=== PATIENT | male | born 1940 | race Caucasian/White ===

== ENCOUNTER 2016-10-29 12:18 | Emergency (ER) | payer OTHER, MEDICARE ==
[2016-10-29 12:26] VITALS: RESP 16; O2SAT 95
--- NOTE | 2016-10-29 13:06 | EDPHY ---
H & P Stated Complaint: L knee injury Time Seen by Provider: 10/29/16 12:42 HPI/ROS: CHIEF COMPLAINT: Left knee pain HISTORY OF PRESENT ILLNESS: 76-year-old male presents emergency department complaining of left knee pain that started 2 days ago. Patient reports it is achy in nature, it started in his lateral knee and now he feels more of it medially. Patient reports last week he got a new truck and he has to crawl up higher to get into it, that is his only increase in activity. He denies fevers or chills, no redness. Patient has a history of gout, reports this does not feel similar, no history of gout in his knees. Patient reports 1 prior history of left knee effusion with fluid was drained several years ago. He reports pain is worse with walking, no pain if he is not moving. No fevers or chills, no numbness or tingling. Patient denies calf pain, no chest pain or shortness of breath. REVIEW OF SYSTEMS: A comprehensive 10 point review of systems is otherwise negative aside from elements mentioned in the history of present illness. Source: Patient Exam Limitations: No limitations - Personal History Current Tetanus/Diphtheria Vaccine: Unsure Current Tetanus Diphtheria and Acellular Pertussis (TDAP): Unsure Tetanus Vaccine Date: 2010 - Medical/Surgical History Hx Asthma: No Hx Chronic Respiratory Disease: Yes Hx Diabetes: Yes Hx Cardiac Disease: Yes Hx Renal Disease: No Hx Cirrhosis: No Hx Alcoholism: No Hx HIV/AIDS: No Hx Splenectomy or Spleen Trauma: No Other PMH: pmh:PACER, DM T1, CHF, [place]. psh: - Social History Smoking Status: Never smoked - Physical Exam Exam: GEN: Awake, alert, oriented, no acute distress RESP: nl resp effort MSK: Left knee with full range of motion, mild effusion, mild medial joint line tenderness to palpation, no lateral joint line tenderness, negative valgus stress, negative varus stress. No calf tenderness to palpation or swelling. SKIN:[place], warm, dry, no rash Constitutional: Initial Vital Signs Temperature (C) 36.7 C 10/29/16 12:24 Heart Rate 84 10/29/16 12:24 Respiratory Rate 16 10/29/16 12:24 Blood Pressure 104/69 10/29/16 12:24 O2 Sat (%) 95 10/29/16 12:24 O2 Delivery Mode Room Air Allergies/Adverse Reactions: No Known Allergies Allergy (Unverified 04/26/13 15:05) Home Medications: Medication Instructions Recorded Insulin Lispro [Humalog] 6 unit SQ ACHS PRN 04/26/13 Atorvastatin Calcium [Lipitor 20 20 mg PO DAILY #30 tab 10/05/15 mg (*)] Rivaroxaban [Xarelto 15mg (*)] 15 mg PO DAILY #30 tab 10/05/15 C/E/Zn/Cu/OM3/DHA/EPA/LUT/ZEAX 1 each PO BID 12/04/15 [Preservision Areds 2 Softgel] Carvedilol [Coreg (*)] 6.25 mg PO BIDMEAL 12/04/15 Cholecalciferol Vit D3 [Vitamin D3 5,000 units PO BID 12/04/15 (*)] Dulaglutide [Trulicity] 1.5 mg SQ WE 12/04/15 Febuxostat [ULORIC] 40 mg PO DAILY 12/04/15 Fluocinonide 1 mabel TP DAILY PRN 12/04/15 Herbals/Supplements -Info Only 1 ea PO DAILY 12/04/15 Insulin Glargine [Lantus 100 20 - 35 units SC DAILY 12/04/15 UNITS/ML (*)] Isosorbide Mononitrate [Imdur 30 30 mg PO DAILY 12/04/15 mg (*)] Furosemide [Lasix 20 MG (*)] 20 mg PO DAILY 12/27/15 Medical Decision Making - Diagnostics Imaging: Knee x-ray independently reviewed by me- Impression: Negative for acute abnormality. Advanced patellofemoral osteoarthritis. Atherosclerosis. Dictated By: Jovanny Castañeda MD ED Course/Re-evaluation: 76-year-old male presents emergency department with knee pain over the last 2 days. Patient has an x-ray that shows a moderate osteoarthritis. I think his pain is likely due to his new truck that is harder to get in out of and he is having arthritis pains. I do not think the patient has gout in this knee. He has no erythema, warmth or exquisite tenderness. Patient has been placed in Luis wrap, I have recommended ice, elevation, Tylenol and he has been given an orthopedist for follow-up. The patient is given strict return precautions for redness, fevers, increased pain, swelling, any other questions or concerns. Differential Diagnosis: Diagnosis considered but not limited to osteoarthritis, septic joint, gout, sprain - Data Points Medications Given: Discontinued Medications Acetaminophen (Tylenol) 650 mg PO EDNOW ONE Stop: 10/29/16 14:36 Last Admin: 10/29/16 15:00 Dose: 650 mg Departure - Departure Disposition: Home, Routine, Self-Care Clinical Impression: Left knee pain Qualifiers: Chronicity: acute Qualifier Code: (M25.562) Pain in left knee Condition: Good Instructions: Knee Pain (ED), Osteoarthritis (ED) Additional Instructions: Rest, ice, elevate, take 650 mg of Tylenol every 8 hours for pain. Follow up with orthopedist at 1st available appointment. Return to the emergency department for worsening symptoms, pain that is not controlled, new symptoms or concerns. Referrals: Antonio Aguiar MD [Medical Doctor] - As per Instructions (orthopedist almond paste mixer)
[2016-10-29] MEDS ORDERED: ACETAMINOPHEN 325 MG TAB PO ONE (14:35)
--- NOTE | 2016-10-29 14:37 | DX ---
Knee 4 or More Views CLNLRB L History: Left knee pain, without trauma. Comparison exam: None available. Findings: Marked patellofemoral degenerative joint disease, especially laterally, associated with lat eral patellar tilt. No fracture or joint effusion. Mild chondrocalcinosis. Extensive diabetic vascular calcifications are present. Impression: Negative for acute abnormality. Advanced patellofemoral osteoarthritis. Atherosclerosis.
[2016-10-29 15:45] VITALS: BP 110/65; PULSE 74; TEMP 97.9
== END 2016-10-29 15:44 | disposition home or self-care (01) ==
DX: M25.562 Pain in left knee (principal); E11.9 Type 2 diabetes mellitus without complications; I50.9 Heart failure, unspecified; Z79.4 Long term (current) use of insulin

== ENCOUNTER → 2017-02-23 | Outpatient (CLI) | payer OTHER, MEDICARE | LOC: BHLMT 14:00 | PROVIDERS: ATTEND Internal Medicine Cardiovascular Disease | DX: I50.9 Heart failure, unspecified (principal) | CPT/HCPCS: 93306-PO ==

== ENCOUNTER 2017-03-16 08:34 | Observation (INO) | payer OTHER, MEDICARE ==
[2017-03-16] MEDS ORDERED: DIAZEPAM 5 MG TAB PO ONE (08:40)
[2017-03-16] MEDS ORDERED: BACITRACIN IRRIGATION/NS 50,000 UNITS/1,000 ML BTL IRR ONE (08:40)
[2017-03-16] MEDS ORDERED: NS 1,000 ML IV ONE (08:40)
[2017-03-16] MEDS ORDERED: diphenhydrAMINE 25 MG CAP PO ONE (08:40)
[2017-03-16] MEDS ORDERED: ceFAZolin 2 GM/DEXTROSE 100 ML IV ONE (08:40)
--- NOTE | 2017-03-16 09:09 | CPEKG ---
Heart Rate: 85 RR Interval: 706 QRSD Interval: 144 QT Interval: 420 QTC Interval: 500 QRS [place]: 226 T Wave [place]: 68 EKG Severity - ABNORMAL ECG - EKG Impression: AFIB/FLUTTER AND VENTRICULAR-PACED RHYTHM Electronically Signed By: Antonio Wahl 16-Mar-2017 16:14:12
[2017-03-16 09:22] LABS: % IMMATURE GRANULYOCYTES 0.3 % (0.0-1.1); ABSOLUTE IMMATURE GRANULOCYTES 0.02 10^3/uL (0.00-0.10); ADD DIFF? NO; ADD MORPH? NO; ADD SCAN? NO; ATYPICAL LYMPHOCYTE FLAG 0 (0-99); FRAGMENT RBC FLAG 0 (0-99); HEMATOCRIT 43.9 % (40.0-51.0); HEMOGLOBIN 14.8 g/dL (13.7-17.5); LEFT SHIFT FLG 0 (0-99); LIPEMIA HEMOLYSIS FLAG 80 (0-99); MEAN CELL HEMOGLOBIN 31.2 pg (27.9-34.1); MEAN CELL HEMOGLOBIN CONCENTR. 33.7 g/dL (32.4-36.7); MEAN CELL VOLUME 92.4 fL (81.5-99.8); MEAN PLATELET VOLUME 10.1 fL (8.7-11.7); PLATELET CLUMPS FLAG 20 (0-99); PLATELET COUNT 157 10^3/uL (150-400); RED BLOOD CELL COUNT 4.75 10^6/uL (4.40-6.38); RED CELL DISTRIBUTION WIDTH 14.9 % (11.5-15.2)
[2017-03-16 09:43] LABS: INR 1.13 (0.83-1.16); PROTIME(PATIENT) 14.4 SEC (12.0-15.0)
[2017-03-16 09:44] LABS: ANION GAP 13 mEq/L (8-16); CALCIUM 10.2 mg/dL (8.5-10.4); CARBON DIOXIDE 23 mEq/l (22-31); CHLORIDE 101 mEq/L (97-110); CREATININE 2.3 mg/dL (0.7-1.3); GLOMERULAR FILTRATION RATE 28; GLUCOSE 51 mg/dL (70-100); POTASSIUM 4.5 mEq/L (3.5-5.2); SODIUM 137 mEq/L (134-144)
[2017-03-16] MEDS ORDERED: D50W 25 GM/50 ML VIAL ONE (10:15)
[2017-03-16] MEDS ORDERED: D50W 25 GM/50 ML VIAL IVP ONE ×2 (10:30)
[2017-03-16] MEDS ORDERED: LIDOCAINE 1% 300 MG/30 ML SDV ONE (11:40)
[2017-03-16] MEDS ORDERED: MIDAZOLAM 2 MG/2 ML VIAL ONE (11:40)
[2017-03-16] MEDS ORDERED: LIDO/EPI 1% **for epidural** 30 ML SDV ONE (11:40)
[2017-03-16] MEDS ORDERED: fentaNYL 100 MCG/2 ML INJ ONE (11:40)
[2017-03-16] MEDS ORDERED: BUPIVACAINE 0.5% 30 ML SDV ONE (11:41)
[2017-03-16] MEDS ORDERED: HYDROCODONE/APAP 5/325 TAB PO PRN (13:14)
[2017-03-16] MEDS ORDERED: OXYCODONE/APAP 5/325 TAB PO PRN (13:14)
[2017-03-16] MEDS ORDERED: FLUOCINONIDE TP PRN ×2 (13:16→15:07)
--- NOTE | 2017-03-16 13:51 | CPEKG ---
Heart Rate: 70 RR Interval: 857 QRSD Interval: 160 QT Interval: 436 QTC Interval: 471 QRS [place]: 171 T Wave [place]: -12 EKG Severity - ABNORMAL ECG - EKG Impression: AFIB/FLUTTER AND VENTRICULAR-PACED RHYTHM Electronically Signed By: Antonio Wahl 16-Mar-2017 16:14:01
[2017-03-16] MEDS: CARVEDILOL 3.125 MG TAB PO SCH (17:56)
[2017-03-16] MEDS ORDERED: ATORVASTATIN CALCIUM 20 MG TAB PO SCH (21:00)
--- NOTE | 2017-03-16 23:13 | CPIP ---
[f rep st] INVASIVE CARDIAC PROCEDURE DATE OF PROCEDURE: 03/16/2017 INDICATIONS: The patient is a 77-year-old male with a history of a severe ischemic cardiomyopathy, and ongoing [place] [employer] functional Class 3 congestive heart failure. He currently hull s a dual chamber biventricular pacemaker. He has chronic atrial fibrillation. He is referred for u pgrade of his current pacemaker to a biventricular ICD. PROCEDURE: Upgrade of a biventricular pacemaker to a biventricular internal cardioverter-defibrilla tor. TECHNIQUE: Following informed consent, the patient was brought to cardiac catheterization [facility] in a fasting state. He was administered prophylactic antibiotics immediately prior to the procedu re. The left chest was prepped and draped in usual sterile fashion. 2% lidocaine was infiltrated i n the skin overlying the existing pacemaker. Using a #10 blade, a 3 cm incision was made. Blunt di ssection was used to identify the pacemaker capsule, which was opened sharply and the device was del ivered from the field. At this point, all the leads were carefully dissected from the surrounding s car tissue. All bleeders were cauterized. Using a Cook needle, access was gained to the axillary v ein at the level of the 1st rib. A 0.035 J-wire was then placed and a 5-[place] dilator placed over this. A venogram was performed which identified a patent axillary subclavian system with a tortuous course and a small stricture. Therefore, we passed a J-wire easily into the superior vena cava. [facility] allowed us to place a 7-[place] safe sheath. Using the safe sheath, the right ventricular lead was brought to the field and placed low on the int erventricular septum and screwed into place and secured to the ICD pocket floor. This lead was test ed with excellent capture and sensing. All the other leads were additionally tested with excellent capture and sensing. The pocket was irrigated with antibiotic-containing solution. The new device was brought to the field and all leads affixed to the head according to design agent guidelines. Th e right atrial lead was connected to the device. The patient does have chronic atrial fibrillation, however, this will assist in sensing. The existing pace sense right ventricular lead was then capp ed. The device and the redundant portions of all leads were then placed in the pocket. The pocket was then closed in 3 layers with 2 layers of interrupted suture using 2-0 and 3-0 Vicryl, and finall y a running 3-0 Stratafix for the skin. Steri-Strips and a dry dressing were applied. The newly placed high-voltage right ventricular lead is a [employer], reference numbe r 7122Q, 58 cm lead, serial number [id number]. The newly implanted device is a [employer] device, model number [id number], serial number [id number]. The existing right atrial lead i s a [employer] 1882TC 52 cm lead, serial number [id number] implanted December 05, 2012. The cap ped right ventricular lead is [employer] 2088TC 58 cm lead, serial number [id number], implant ed December 05, 2012. The coronary sinus lead is a [employer] 1258T 75 cm lead, serial number [id number], implanted March 27, 2013. Sensed R waves in the right ventricle were 11.4 mV with lead impedance of 496 ohms. The capture was 0.4 V at 0.5 msec. The coronary sinus lead impedance 490 ohms with a threshold 0.3 V at 0.5 msec. Right atrial lead was not tested due to the presence of chronic atrial fibrillation. DFTs were not performed. COMPLICATIONS: None. DISPOSITION: Patient will be recovered in the CVC. He will be admitted to the hospital overnight, and discharged home from the hospital tomorrow. /[id number]/MODL
[2017-03-16 23:17] VITALS: RESP 16
[2017-03-17 05:11] LABS: % IMMATURE GRANULYOCYTES 0.2 % (0.0-1.1); ABSOLUTE IMMATURE GRANULOCYTES 0.01 10^3/uL (0.00-0.10); ADD DIFF? NO; ADD MORPH? NO; ADD SCAN? NO; ATYPICAL LYMPHOCYTE FLAG 0 (0-99); FRAGMENT RBC FLAG 0 (0-99); HEMATOCRIT 40.5 % (40.0-51.0); HEMOGLOBIN 13.7 g/dL (13.7-17.5); LEFT SHIFT FLG 0 (0-99); LIPEMIA HEMOLYSIS FLAG 90 (0-99); MEAN CELL HEMOGLOBIN 31.3 pg (27.9-34.1); MEAN CELL HEMOGLOBIN CONCENTR. 33.8 g/dL (32.4-36.7); MEAN CELL VOLUME 92.5 fL (81.5-99.8); MEAN PLATELET VOLUME 10.6 fL (8.7-11.7); PLATELET CLUMPS FLAG 0 (0-99); PLATELET COUNT 119 10^3/uL (150-400); RED BLOOD CELL COUNT 4.38 10^6/uL (4.40-6.38); RED CELL DISTRIBUTION WIDTH 14.9 % (11.5-15.2)
[2017-03-17 05:30] LABS: ANION GAP 11 mEq/L (8-16); CALCIUM 9.5 mg/dL (8.5-10.4); CARBON DIOXIDE 21 mEq/l (22-31); CHLORIDE 103 mEq/L (97-110); GLOMERULAR FILTRATION RATE 32; GLUCOSE 151 mg/dL (70-100); POTASSIUM 4.6 mEq/L (3.5-5.2); SODIUM 135 mEq/L (134-144)
[2017-03-17 08:27] VITALS: PULSE 70
--- NOTE | 2017-03-17 08:39 | CPEKG ---
Heart Rate: 70 RR Interval: 857 P-R Interval: 182 QRSD Interval: 158 QT Interval: 412 QTC Interval: 445 P [place]: 0 QRS [place]: 178 T Wave [place]: 62 EKG Severity - ABNORMAL ECG - EKG Impression: VENTRICULAR-PACED RHYTHM Electronically Signed By: Mike Woods 18-Mar-2017 09:45:20
[2017-03-17] MEDS ORDERED: FUROSEMIDE 20 MG TAB PO ONE (08:57)
[2017-03-17] MEDS ORDERED: ISOSORBIDE MONONITRATE 30 MG TAB.SR PO SCH (09:00)
[2017-03-17] MEDS ORDERED: INSULIN GLARGINE 100 UNITS/ML SYRINGE SC SCH (09:00)
[2017-03-17] MEDS ORDERED: FUROSEMIDE 20 MG TAB PO SCH (09:00)
[2017-03-17] MEDS ORDERED: CHOLECALCIFEROL VIT D3 1,000 UNITS TAB PO SCH (09:00)
[2017-03-17] MEDS: CARVEDILOL 3.125 MG TAB PO SCH (09:19)
[2017-03-17 11:33] VITALS: BP 90/58; TEMP 97.2; O2SAT 94
--- NOTE | 2017-03-17 20:02 | GDS ---
[f rep st] DISCHARGE SUMMARY ADMISSION DIAGNOSES: 1. Coronary artery disease. 2. Chronic ischemic cardiomyopathy, with ejection fraction of 30%, valvular heart disease, with kno wn [id number] mitral regurgitation and tricuspid regurgitation, renal insufficiency, with no rmal creatinine at 2.2. 3. Insulin-dependent diabetes. 4. Remote history of biventricular pacemaker. 5. Persistent atrial fibrillation. DISCHARGE DIAGNOSES: 1. Coronary artery disease. 2. Chronic ischemic cardiomyopathy, with ejection fraction less than 30%. 3. Status post upgrade biventricular pacemaker to automatic implantable cardioverter/defibrillator, with new right ventricular lead implantation. 4. Chronic renal insufficiency. 5. Insulin-dependent diabetic. 6. Persistent atrial fibrillation. PROCEDURES DONE DURING HOSPITALIZATION: 1. Electrocardiogram. 2. Biventricular pacemaker upgrade to biventricular AICD, with new RV lead implantation, both [employer] ude device and lead. 3. Chest x-ray. BRIEF HISTORY: The patient is a 77-year-old male with known history of CAD, chronic systolic heart failure, chronic ischemic cardiomyopathy, with EF less than 30%. He has been tried on maximum medic al therapy, with no improvement in ejection fraction, and due to his risk for sudden cardiac , he meets the criteria for upgrade to AICD. HOSPITAL COURSE: Patient was admitted through CVC, prepped for procedure, and taken to the cardiac catheterization lab. There, Dr. Wahl successfully removed his old pacemaker generator, implanted a new RV lead with coil for defibrillation, capped his old RV lead, and installed a new [employer] bive ntricular AICD generator. No complications. The patient was taken back to the CVC, and ultimately to the PCU for overnight observation. The patient had no problems, reporting mild shortness of ion th through last night, but no chest pain or pressure. Electrocardiogram shows that he has been in a trial fibrillation, with ventricular-paced beats. He has been up and walking the unit without any d ifficulties. His vital signs remained stable throughout the evening. No malignant arrhythmia or pa uses noted. PHYSICAL EXAMINATION: Done today. GENERAL APPEARANCE: Medium-built, mildly obese, male. He is alert and oriented to person, place, time, and situation, appears to be under no acute distr ess. VITAL SIGNS: Current vital signs are blood pressure of 98/63, heart rate is 70, atrial fibril lation with ventricular-paced beats, respirations 16, saturating 94% on room air, temperature of 36. 2 degrees Celsius. HEENT: Head is normocephalic. Lips and tongue are pink and moist, with no sign s of cyanosis. Conjunctivae pink. NECK: Trachea is midline, +2 carotid pulses, no auscultated bru its. RESPIRATORY: Lungs clear to auscultation. No rhonchi, rales or wheezes. No accessory muscle use. No intercostal muscle retraction. CARDIAC: Regular rate, regular rhythm. S1, S2. A 2/6 sy stolic murmur noted along the left sternal border. ABDOMEN: Soft, nontender. Bowel sounds x4 quad rants. No organomegaly. No palpable masses. SKIN: [place], warm, dry. No cyanosis, no clubbing. T race peripheral edema bilateral lower extremities. VASCULAR: +2 carotids bilateral, +2 radials [place] ateral, +2 dorsal pedal and posterior tibial pulses bilateral. Incision site, pacemaker, and AICD i ncision site, left anterior chest just distal to the clavicle, incision intact with Steri-Strips. N o redness, swelling, drainage, ecchymosis or hematoma. No signs of infection. Dressing change done at this time. LABORATORY STUDIES: Drawn today show WBC of 5.43, hemoglobin 13.7, hematocrit of 40.5, platelet cou nt 119. INR on admission was 1.13. Sodium 135, potassium of 4.6, chloride 103, CO2 21, BUN 54, cre atinine 2.0, glucose 151, calcium 9.5. IMAGING: Biventricular AICD, with RV lead implantation, as mentioned above. A.m. electrocardiogram shows atrial fibrillation, with ventricular-paced beats. [employer] Franco rep interrogating device this morning showing functioning within normal limits. Chest x-ray done this morning shows cardiomegaly, without pulmonary edema. No delayed pulmonary pne umothorax with pacemaker implantation. DISCHARGE DISPOSITION: Patient will be discharged home in stable condition. He is under activity r estrictions of not lifting left arm higher than shoulder height for the next 6 weeks, not lifting mo re than 10 pounds with the left arm. DISCHARGE MEDICATIONS: Please see discharge medication reconciliation sheet. Note, patient has bee n asked to not restart metformin until tomorrow evening, 48 hours after his procedure, due to contra st given, due to venogram during procedure. The patient will also restart Xarelto tomorrow. Note, due to patient's mild complaint of shortness of breath, we have given him a double dose of Lasix of 40 mg, which he reports improvement in symptoms. DISCHARGE INSTRUCTIONS: Post AICD biventricular device implantation instructions went over with the patient, including for monitoring for infection, bathing precautions, activity restrictions, and me dication compliance. The patient has a followup appointment next week in our [place] office for a device and wound check. He has a followup appointment in [address] Wahl; at that time, we w ill plan for him to have an echocardiogram with pacemaker rep in the office for better resynchroniza tion of his device, with hopeful improvement in his symptoms. At the time of discharge, patient verbalizes understanding of all instructions, and has no questions . He has been told that if any questions or concerns post discharge, he is to call our office or re turn to the hospital. Total time spent on discharge greater than 30 minutes. /[id number]/MODL
== END 2017-03-17 12:55 | disposition home or self-care (01) ==
LOC: FCATH 08:34 → F2W 13:35
PROVIDERS: ADMIT Internal Medicine Cardiovascular Disease; ATTEND Internal Medicine Cardiovascular Disease
DX: I25.5 Ischemic cardiomyopathy (principal); I25.10 Atherosclerotic heart disease of native coronary artery without angina pectoris; I50.22 Chronic systolic (congestive) heart failure; I08.1 Rheumatic disorders of both mitral and tricuspid valves; I48.1 Persistent atrial fibrillation; E11.9 Type 2 diabetes mellitus without complications
CPT/HCPCS: 33233; 33249; 71010; 71020; 93005; C1769; G0378; J0690; J1815; J2250; J3010

== ENCOUNTER → 2017-03-30 | Outpatient (CLI) | payer OTHER, MEDICARE | LOC: BHLMT 09:15 | PROVIDERS: ATTEND Internal Medicine Cardiovascular Disease | DX: I48.91 Unspecified atrial fibrillation (principal); I25.10 Atherosclerotic heart disease of native coronary artery without angina pectoris ==

== ENCOUNTER 2017-04-17 20:20 | Emergency (ER) | payer OTHER, MEDICARE ==
[2017-04-17 20:28] VITALS: BP 130/71; PULSE 70; RESP 20; TEMP 97.5; O2SAT 96
--- NOTE | 2017-04-17 20:46 | EDPHY ---
H & P Stated Complaint: bilateral LE edema and abd pain x2 weeks Time Seen by Provider: 04/17/17 20:33 HPI/ROS: CHIEF COMPLAINT: Hernia HISTORY OF PRESENT ILLNESS: The patient is a 77-year-old man who comes to the emergency department complaining of an inguinal hernia. He states that it goes in and out for the last several months. It is quite large. He had it examined by his doctor thought that it was a cyst. He also complains of since 5 lb weight gain over the last few weeks and mildly increased edema in his legs. He does have a history of congestive heart failure. He also has history of renal insufficiency and diabetes. He takes 20 mg of Lasix daily. He is instructed to take 30 mg for the last 2 days. He states that he has had some improvement but still has mild edema. No fever. No erythema. No difficulty breathing. No chest pain. No shortness of breath. REVIEW OF SYSTEMS: Constitutional: denies: chills, fever, recent illness, recent injury EENTM: denies: blurred vision, double vision, nose congestion Respiratory: denies: cough, shortness of breath Cardiac: denies: chest pain, irregular heart rate, lightheadedness, palpitations Gastrointestinal/Abdominal: denies: abdominal pain, diarrhea, nausea, vomiting, blood streaked stools Genitourinary: denies: dysuria, frequency, hematuria, pain Musculoskeletal: denies: joint pain, muscle pain Skin: denies: lesions, rash, jaundice, bruising Neurological: denies: headache, numbness, paresthesia, tingling, dizziness, weakness Hematologic/Lymphatic: denies: blood clots, easy bleeding, easy bruising Immunologic/allergic: denies: HIV/AIDS, transplant EXAM: GENERAL: Well-appearing, well-nourished and in no acute distress. HEAD: Atraumatic, normocephalic. EYES: Pupils equal round and reactive to light, extraocular movements intact, sclera anicteric, conjunctiva are normal. ENT: TMs normal, nares patent, oropharynx clear without exudates. Moist mucous membranes. NECK: Normal range of motion, supple without lymphadenopathy or JVD. LUNGS: Breath sounds clear to auscultation bilaterally and equal. No wheezes rales or rhonchi. HEART: Regular rate and rhythm without murmurs, rubs or gallops. ABDOMEN: Right inguinal hernia the large but easily reducible, nontender. Obese , , normoactive bowel sounds. No guarding, no rebound. No masses appreciated. BACK: No CVA tenderness, no spinal tenderness, step-offs or deformities EXTREMITIES: Very minimal lymphedema in legs bilaterally, no erythema, no tenderness Normal range of motion. No clubbing or cyanosis. NEUROLOGICAL: Cranial nerves II through XII grossly intact. Normal speech, normal gait. 5/5 strength, normal movement in all extremities, normal sensation PSYCH: Normal mood, normal affect. SKIN: Warm, dry, normal turgor, no visible rashes or lesions. Source: Patient, Family Exam Limitations: No limitations - Personal History Current Tetanus/Diphtheria Vaccine: Yes Current Tetanus Diphtheria and Acellular Pertussis (TDAP): Yes Tetanus Vaccine Date: 2010 - Medical/Surgical History Hx Asthma: No Hx Chronic Respiratory Disease: Yes Hx Diabetes: Yes Hx Cardiac Disease: Yes Hx Renal Disease: Yes Hx Cirrhosis: No Hx Alcoholism: No Hx HIV/AIDS: No Hx Splenectomy or Spleen Trauma: No Other PMH: pmh:PACER, DM 2, CHF, [place], [place] - Family History Significant Family History: No pertinent family hx - Social History Smoking Status: Never smoked Alcohol Use: Sober Drug Use: None Constitutional: Initial Vital Signs Temperature (C) 36.4 C 04/17/17 20:24 Heart Rate 70 04/17/17 20:24 Respiratory Rate 20 04/17/17 20:24 Blood Pressure 130/71 H 04/17/17 20:24 O2 Sat (%) 96 04/17/17 20:24 O2 Delivery Mode Room Air Allergies/Adverse Reactions: No Known Allergies Allergy (Unverified 04/26/13 15:05) Home Medications: Medication Instructions Recorded Rivaroxaban [Xarelto 15mg (*)] 15 mg PO DAILY #30 tab 10/05/15 C/E/Zn/Cu/OM3/DHA/EPA/LUT/ZEAX 1 each PO BID 12/04/15 [Preservision Areds 2 Softgel] Cholecalciferol Vit D3 [Vitamin D3 5,000 units PO DAILY 12/04/15 (*)] Dulaglutide [Trulicity] 1.5 mg SQ WE 12/04/15 Fluocinonide 1 mabel TP DAILY PRN 03/16/16 Insulin Glargine [Lantus 100 35 units SC DAILY 12/04/15 UNITS/ML (*)] Isosorbide Mononitrate [Imdur 30 30 mg PO DAILY 12/04/15 mg (*)] Furosemide [Lasix 20 MG (*)] 20 mg PO DAILY 12/27/15 Atorvastatin Calcium [Lipitor 20 20 mg PO HS 03/16/17 mg (*)] Carvedilol [Coreg (*)] 3.125 mg PO BIDMEAL 03/16/17 Herbals/Supplements -Info Only 1 each PO DAILY 03/16/17 Hydrocortisone 2.5% 1 mabel TP DAILY PRN 03/16/17 [Hydrocortisone 2.5% cream (*)] metFORMIN HCL [Glucophage 500 mg 500 mg PO BIDMEAL 03/16/17 (*)] Medical Decision Making - Diagnostics Imaging: Discussed imaging studies w/ director call Radiologist ED Course/Re-evaluation: Patient is overall very well-appearing. He has been increasing his Lasix with moderate improvement. I encouraged him to increase his Lasix to 40 mg a day and follow up with his doctor of pharmacy Dr. Zamudio in 2 days. I recommended that he have his hernia repaired because it does cause him some discomfort. It is easily reducible when he lays on his left side. He has been doing this at home. I did offer to obtain lab work and treat the patient with Lasix here especially considering his history of renal insufficiency. Patient and family however declined stating that when he takes Lasix at night it makes him stay up all night urinating. This seems reasonable. The patient's vital signs are stable. He is saturating 96% on room air and lung sounds are clear. We discussed indications for returning. Differential Diagnosis: Partial list of the Differential diagnosis considered include but were not limited to; CHF, lower extremity edema, inguinal hernia and although unlikely based on the history and physical exam, I also considered cyst, hematoma, obstruction, voice. I discussed these differential diagnoses and the plan with the patient as well as the usual and expected course. The patient understands that the diagnosis is provisional and that in medicine we are not always correct and that further workup is often warranted. Usual and customary warnings were given. All of the patient's questions were answered. The patient was instructed to return to the emergency department should the symptoms at all worsen or return, otherwise to followup with the physician as we discussed. Departure - Departure Disposition: Home, Routine, Self-Care Clinical Impression: Fluid retention in legs Inguinal hernia Qualifiers: Obstruction and gangrene presence: without obstruction or gangrene Laterality: unilateral Recurrence: recurrent Qualified Code(s): K40.91 - Unilateral inguinal hernia, without obstruction or gangrene, recurrent Condition: Fair Instructions: Inguinal Hernia (ED), Leg Edema (ED) Additional Instructions: Increase her Lasix to 40 mg each day and follow up with Dr. Zamudio as discussed within the next 48 hours. Return to the emergency department if you have difficulty breathing or feel lightheaded as we discussed. Follow up with surgeon for elective repair of your inguinal hernia. Referrals: MARGARET HILTON [Other] - As per Instructions Evan Zamudio MD [Medical Doctor] - As per Instructions Chni Vasquez MD [Medical Doctor] - As per Instructions
== END 2017-04-17 20:45 | disposition home or self-care (01) ==
DX: K40.91 Unilateral inguinal hernia, without obstruction or gangrene, recurrent (principal); R60.9 Edema, unspecified; E11.9 Type 2 diabetes mellitus without complications; I25.2 Old myocardial infarction; I50.9 Heart failure, unspecified; Z79.4 Long term (current) use of insulin; Z79.84 Long term (current) use of oral hypoglycemic drugs

== ENCOUNTER → 2017-05-19 | Outpatient (CLI) | payer OTHER, MEDICARE | LOC: BHFA 13:45 | PROVIDERS: ATTEND Internal Medicine Cardiovascular Disease | DX: I25.10 Atherosclerotic heart disease of native coronary artery without angina pectoris (principal); I50.22 Chronic systolic (congestive) heart failure; R06.02 Shortness of breath; N18.9 Chronic kidney disease, unspecified ==

== ENCOUNTER 2017-05-26 08:13 | Observation (INO) | payer OTHER, MEDICARE ==
[2017-05-21 15:38] LABS: % IMMATURE GRANULYOCYTES 0.2 % (0.0-1.1); ABSOLUTE IMMATURE GRANULOCYTES 0.01 10^3/uL (0.00-0.10); ADD DIFF? NO; ADD MORPH? NO; ADD SCAN? NO; ATYPICAL LYMPHOCYTE FLAG 0 (0-99); FRAGMENT RBC FLAG 0 (0-99); HEMATOCRIT 38.7 % (40.0-51.0); HEMOGLOBIN 13.2 g/dL (13.7-17.5); LEFT SHIFT FLG 0 (0-99); LIPEMIA HEMOLYSIS FLAG 90 (0-99); MEAN CELL HEMOGLOBIN 31.6 pg (27.9-34.1); MEAN CELL HEMOGLOBIN CONCENTR. 34.1 g/dL (32.4-36.7); MEAN CELL VOLUME 92.6 fL (81.5-99.8); MEAN PLATELET VOLUME 9.7 fL (8.7-11.7); PLATELET CLUMPS FLAG 0 (0-99); PLATELET COUNT 149 10^3/uL (150-400); RED BLOOD CELL COUNT 4.18 10^6/uL (4.40-6.38); RED CELL DISTRIBUTION WIDTH 14.6 % (11.5-15.2)
[2017-05-21 17:07] LABS: ANION GAP 15 mEq/L (8-16); CALCIUM 8.9 mg/dL (8.5-10.4); CARBON DIOXIDE 20 mEq/l (22-31); CHLORIDE 99 mEq/L (97-110); CREATININE 2.1 mg/dL (0.7-1.3); GLOMERULAR FILTRATION RATE 31; GLUCOSE 310 mg/dL (70-100); POTASSIUM 4.8 mEq/L (3.5-5.2); SODIUM 134 mEq/L (134-144)
--- NOTE | 2017-05-26 08:55 | PDHPUP ---
History & Physical Update H&P update statement: This history and physical update is based on an assessment of the patient which was completed after admission or registration (within 24 hours), but prior to the surgery/procedure.
[2017-05-26] MEDS ORDERED: LIDOCAINE 1% 300 MG/30 ML SDV ONE (09:38)
[2017-05-26] MEDS ORDERED: BUPIVACAINE 0.5% 30 ML SDV ONE (09:39)
[2017-05-26] MEDS ORDERED: CARVEDILOL 3.125 MG TAB PO ONE (09:46)
[2017-05-26] MEDS ORDERED: INSULIN REGULAR HUMAN 100 UNIT/ML ONE ×2 (09:46→10:24)
--- NOTE | 2017-05-26 09:53 | PDANEPAE ---
ANE History of Present Illness 77 yo M w h/o hernia here for open repair ANE Past Medical History - Cardiovascular History Hx Hypertension: No Hx Arrhythmias: Yes Hx Chest Pain: No Hx Coronary Artery / Peripheral Vascular Disease: Yes Hx CHF / Valvular Disease: Yes Hx Palpitations: Yes Cardiovascular History Comment: PAROXYSMAL ATRIAL FIB. CHF - Pulmonary History Hx COPD: No Hx Asthma/Reactive Airway Disease: No Hx Recent Upper Respiratory Infection: No Hx Oxygen in Use at Home: No Hx Sleep Apnea: Yes Sleep Apnea Screening Result - Last Documented: Positive - Neurologic History Hx Cerebrovascular Accident: No Hx Seizures: No Hx Dementia: No - Endocrine History Hx Diabetes: Yes Endocrine History Comment: DM - Renal History Hx Renal Disorders: Yes Renal History Comment: CHRONIC KIDNEY DISEASE - Liver History Hx Hepatic Disorders: No - Neurological & Psychiatric Hx Hx Neurological and Psychiatric Disorders: No - Cancer History Hx Cancer: Yes Cancer History Comment: SKIN CANCER - Congenital Disorder History Hx Congenital Disorders: No - GI History Hx Gastrointestinal Disorders: No - Other Health History Other Health History: GOUT - Chronic Pain History Chronic Pain: Yes (WRIST PAIN) - Surgical History Prior Surgeries: CORONARY STENT X3. ICD IMPLANTED. SKIN CA REMOVED ANE Review of Systems Review of Systems: - Exercise capacity METS (RN): 4 METS - Pacemaker Pacemaker Type: Permanent Pacer/Defib Pacemaker Director [employer]: [employer] Pacemaker Model: UN[employer]A CARDIOTHOR[employer]IC SURGEON-D Pacemaker Mode: VVIR Date Pacemaker Last Checked: 04/27/17 ANE Patient History - Allergies Allergies/Adverse Reactions: No Known Allergies Allergy (Unverified 04/26/13 15:05) - Home Medications Home medications: home medication list seen and reviewed Home Medications: C/E/Zn/Cu/OM3/DHA/EPA/LUT/ZEAX [Preservision Areds 2 Softgel] 1 each PO BID [Last Taken 05/21/17] Dulaglutide [Trulicity] 1.5 mg SQ WE 12/04/15 [Last Taken 05/19/17] Insulin Glargine [Lantus 100 UNITS/ML (*)] 35 units SC DAILY 12/04/15 [Last Taken 05/25/17] Isosorbide Mononitrate [Imdur 30 mg (*)] 30 mg PO DAILY 12/04/15 [Last Taken 03/06] Furosemide [Lasix 20 MG (*)] 20 mg PO DAILY 12/27/15 [Last Taken 05/25/17] Atorvastatin Calcium [Lipitor 20 mg (*)] 20 mg PO DAILY 03/16/17 [Last Taken 02/03] Carvedilol [Coreg (*)] 3.125 mg PO BIDMEAL 03/16/17 [Last Taken 05/25/17] Herbals/Supplements -Info Only 1 each PO DAILY 03/16/17 [Last Taken 05/21/17] Hydrocortisone 2.5% [Hydrocortisone 2.5% cream (*)] 1 mabel TP DAILY PRN 03/16/17 [Last Taken 05/25/17] Fluocinonide 0.05% [Lidex 0.05% Cream (RX)] 1 mabel TP DAILY PRN 05/17/17 [Last Taken 05/25/17] Insulin Aspart [novoLOG] 3 unit SC DAILY PRN 05/17/17 [Last Taken 05/25/17] - NPO status NPO Status: no food or drink >8 hours NPO Since - Liquids (Date): 05/26/17 NPO Since - Liquids (Time): 06:00 NPO Since - Solids (Date): 05/25/17 NPO Since - Solids (Time): 21:00 - Anes Hx Anes Hx: no prior problems - Smoking Hx Smoking Status: Never smoked - Alcohol Use Alcohol Use: Rarely - Family Anes Hx Family Anes Hx: none Family Hx Anesthesia Complications: NEG ANE Labs/Vital Signs - Labs Result Diagrams: 05/21/17 15:31 05/21/17 15:31 - Vital Signs Blood Pressure: 125/80 Heart Rate: 64 Respiratory Rate: 14 O2 Sat (%): 96 Height: 182.88 cm Weight: 98.43 kg ANE Physical Exam - Airway Neck exam: FROM Mallampati Score: Class 3 Mouth exam: normal dental/mouth exam - Pulmonary Pulmonary: no respiratory distress, clear to auscultation - Cardiovascular Cardiovascular: regular rate and rhythym - ASA Status ASA Status: III ANE Anesthesia Plan Anesthesia Plan: general endotracheal anesthesia (backup plan), GA with mask Total IV Anesthesia: Yes
[2017-05-26] MEDS ORDERED: INSULIN ASPART NovoLOG 70/30 100 UNITS/ML SYR SC ONE (10:00)
[2017-05-26] MEDS ORDERED: KETAMINE 100 MG/10 ML SYR ONE (10:04)
[2017-05-26] MEDS ORDERED: PROPOFOL/EMULSION 500 MG/50 ML BOTTLE IV ONE (10:04)
[2017-05-26] MEDS ORDERED: INSULIN NPH HUMAN 100 UNITS/ML SYRINGE SC SCH (10:30)
[2017-05-26] MEDS ORDERED: INSULIN REGULAR HUMAN 100 UNIT/ML SC ONE (10:30)
[2017-05-26] MEDS ORDERED: LR 1,000 ML IV ONE (10:38)
[2017-05-26] MEDS ORDERED: ONDANSETRON 4 MG/2 ML VIAL IVP PRN (11:04)
[2017-05-26] MEDS ORDERED: fentaNYL 100 MCG/2 ML INJ IVP PRN (11:04)
[2017-05-26] MEDS ORDERED: OXYCODONE/APAP 5/325 TAB PO PRN (11:04)
[2017-05-26] MEDS ORDERED: ACETAMINOPHEN 500 MG TAB PO PRN (11:04)
[2017-05-26] MEDS ORDERED: NALOXONE HCL 0.4 MG/ML INJ IVP PRN (11:04)
--- NOTE | 2017-05-26 12:30 | POSTOPPROG ---
Post Op Note Date of Operation: 05/26/17 Surgeon: Jimbo White Platen Press Operator: none Anesthesiologist: Anamika Anesthesia: GET(General Endotracheal) Pre-op Diagnosis: RIH Post-op Diagnosis: same Procedure: Open hernia repair Findings: indirect hernia 15 cm sac Inf/Abcess present in the surg proc area at time of surgery?: No EBL: Minimal Complications: none Specimen(s): none
[2017-05-26] MEDS ORDERED: INSULIN ASPART 3 UNIT SC PRN (12:34)
[2017-05-26] MEDS ORDERED: FLUOCINONIDE 0.05% 15 GM CREAM TP PRN (12:34)
--- NOTE | 2017-05-26 13:27 | GOP ---
[f rep st] OPERATIVE REPORT DATE OF OPERATION: SURGEON: Jimbo White MD ANESTHESIA: General IV anesthesia and local anesthesia use. ANESTHESIOLOGIST: Nigel Willson MD PREOPERATIVE DIAGNOSIS: Right inguinal hernia. POSTOPERATIVE DIAGNOSIS: Right inguinal hernia. PROCEDURE PERFORMED: Open right inguinal hernia repair, Alison type. FINDINGS: Indirect inguinal hernia with a large sac, approximately 15 cm. INDICATIONS: This is a 77-year-old gentleman who presents to the hospital for elective right inguina l hernia repair. The patient has complications in terms of cardiomyopathy with an EF of 25%, AICD, w hich has been disabled. DESCRIPTION OF PROCEDURE: The patient was brought into the operating room. After induction of IV se dation, his abdomen was prepped with the groin and draped in the normal sterile fashion. Time-out pr ocedure was then performed according to institutional standards. Local anesthetic was infused in ski n and subcutaneous tissues of the groin as well as field block. An incision was made with a 10 blade and deepened with electrocautery. Tie ligation of vessels was performed and the incision was aaron d down to the level of the external oblique fascia. This was divided in the direction of fibers and the hernia was identified after opening up the external oblique fascia. The cord was encircled at th e level of the pubic tubercle and dissection was carried downward. The sac was dissected away from t he cord structures and reduced into the abdominal cavity. The mesh was then affixed from the pubic t ubercle, inferolaterally along the shelving edge of the inguinal ligament and superolaterally along t he transversalis muscle. The leaves of the mesh were then reapproximated around the cord to form a n ew internal ring and secured with 0 Ethibond suture. The incision was then closed by reapproximating the fascia using 3-0 Vicryl as well as Zacarias fascia and then reapproximated in the skin in layered closure, 4-0 Monocryl in a running suture for the subcuticular layer. Dermabond was applied. The pa tient awakened fully, taken to the recovery room in stable condition. No immediate complications. COMPLICATIONS: There were no complications. /[id number]/MODL
[2017-05-26] MEDS ORDERED: Dulaglutide [Trulicity] 1.5 MG SQ SCH (14:45)
[2017-05-26 15:50] VITALS: PULSE 70
[2017-05-26] MEDS: HYDROCODONE/APAP 5/325 TAB PO PRN ×2 (17:49→21:30)
[2017-05-26] MEDS: CARVEDILOL 3.125 MG TAB PO SCH (17:54)
[2017-05-26] MEDS: INSULIN LISPRO 100 UNIT/ML SC SCH (18:12)
[2017-05-27] MEDS: HYDROCODONE/APAP 5/325 TAB PO PRN (03:16)
[2017-05-27 08:18] VITALS: BP 113/63; RESP 20; TEMP 98.6; O2SAT 97
[2017-05-27] MEDS: INSULIN LISPRO 100 UNIT/ML SC SCH (08:30)
[2017-05-27] MEDS: CARVEDILOL 3.125 MG TAB PO SCH (08:30)
[2017-05-27] MEDS ORDERED: PNEUMOC 13-VAL CONJ-DIP CRM/PF 0.5 ML SYR IM ONE (08:39)
[2017-05-27] MEDS ORDERED: ISOSORBIDE MONONITRATE 30 MG TAB.SR PO SCH (09:00)
[2017-05-27] MEDS ORDERED: FUROSEMIDE 20 MG TAB PO SCH (09:00)
[2017-05-27] MEDS ORDERED: Herbals/Supplements -Info Only PO SCH (09:00)
[2017-05-27] MEDS ORDERED: ATORVASTATIN CALCIUM 20 MG TAB PO SCH (09:00)
[2017-05-27] MEDS ORDERED: INSULIN GLARGINE 100 UNITS/ML SYRINGE SC SCH ×2 (09:00)
[2017-05-28] MEDS ORDERED: RIVAROXABAN 15 MG TAB PO SCH (18:00)
--- NOTE | 2017-05-30 17:06 | ASDISCHSUM ---
Discharge Information Plan Status:Home with No Needs Medically Cleared to Leave:05/27/2017 Discharge Date:05/27/2017 11:45 AM CM D/C Disposition:Home, Routine, Self-Care ADT D/C Disposition:Home, Routine, Self-Care Projected Discharge Date:05/27/2017 12:00 AM Transportation at D/C: Discharge Delay Reason: Follow-Up Date:05/27/2017 12:00 AM Discharge Slot: Final Diagnosis: Placement Information Patient Contact Information Contact Name:OJEL Relationship: Address:[address] [place] Work Phone: City:[place] Alternate Phone: [facility]/Zip Code:[place] [address] Email: Financial Information Financial Class: Primary Plan Desc:MEDICARE OUTPATIENT Primary Plan Number:[id number] Secondary Plan Desc:[employer]/MDR SUPPLEMENT Secondary Plan Number:[id number] Assessment Information Intervention Information Intervention Type:*HUNT-Signed Date of Service:05/27/2017 10:14 AM Patient Type:Observation Staff Member:Madie Paulino Hours: Discipline: Severity: Comment:
== END 2017-05-27 11:45 | disposition home or self-care (01) ==
LOC: F3E 08:13
PROVIDERS: ADMIT Surgery; ATTEND Surgery
PROC: 0YU50JZ Supplement Right Inguinal Region with Synthetic Substitute, Open Approach (ICD-10-PCS; principal; 2017-05-26 10:15)
DX: K40.90 Unilateral inguinal hernia, without obstruction or gangrene, not specified as recurrent (principal); I13.0 Hypertensive heart and chronic kidney disease with heart failure and stage 1 through stage 4 chronic kidney disease, or unspecified chronic kidney disease; N18.9 Chronic kidney disease, unspecified; I48.0 Paroxysmal atrial fibrillation; I50.9 Heart failure, unspecified; E11.22 Type 2 diabetes mellitus with diabetic chronic kidney disease; Z79.4 Long term (current) use of insulin; Z79.01 Long term (current) use of anticoagulants; Z95.810 Presence of automatic (implantable) cardiac defibrillator; Z23 Encounter for immunization
CPT/HCPCS: 49505; 90670; 97161; C1781; G0009; G8978; G8979; J1815; J2704

== ENCOUNTER → 2018-11-01 | Outpatient (CLI) | payer OTHER, MEDICARE | LOC: BHLMT 14:00 | PROVIDERS: ATTEND Internal Medicine Cardiovascular Disease | DX: I50.9 Heart failure, unspecified (principal); I48.91 Unspecified atrial fibrillation | CPT/HCPCS: 93306-PO ==

== ENCOUNTER 2018-12-30 14:01 | Inpatient (IN) | payer OTHER, MEDICARE ==
[2018-12-30 15:05] LABS: PLATELET COUNT 160 10^3/uL (150-400)
[2018-12-30] MEDS ORDERED: ASPIRIN 81 MG CHEWABLE TAB PO ONE (15:21)
[2018-12-30] MEDS ORDERED: FUROSEMIDE 20 MG/2 ML VIAL IVP ONE (15:41)
--- NOTE | 2018-12-30 16:35 | EDPHY ---
H & P Stated Complaint: Cough/SOB Time Seen by Provider: 12/30/18 14:42 - Personal History Current Tetanus/Diphtheria Vaccine: Yes Tetanus Vaccine Date: 2010 - Medical/Surgical History Hx Asthma: No Hx Chronic Respiratory Disease: Yes Hx Diabetes: Yes Hx Cardiac Disease: Yes Hx Renal Disease: Yes Hx Cirrhosis: No Hx Alcoholism: No Hx HIV/AIDS: No Hx Splenectomy or Spleen Trauma: No Other PMH: pmh:PACER, DM 2, CHF, EMMONAK, GA - Social History Smoking Status: Never smoked Constitutional: Initial Vital Signs Temperature (C) 37.8 C 12/30/18 14:10 Heart Rate 68 12/30/18 14:10 Respiratory Rate 18 12/30/18 14:10 Blood Pressure 129/86 H 12/30/18 14:10 O2 Sat (%) 92 12/30/18 14:10 O2 Delivery Mode Room Air Allergies/Adverse Reactions: No Known Allergies Allergy (Unverified 12/30/18 14:13) Home Medications: Medication Instructions Recorded Rivaroxaban [Xarelto 15mg (*)] 15 mg PO DAILY #30 tab 10/05/15 C/E/Zn/Cu/OM3/DHA/EPA/LUT/ZEAX 1 each PO BID 12/04/15 [Preservision Areds 2 Softgel] Dulaglutide [Trulicity] 1.5 mg SQ WE 12/04/15 Insulin Glargine [Lantus 100 35 units SC DAILY 12/04/15 UNITS/ML] Isosorbide Mononitrate [Imdur 30 30 mg PO DAILY 12/04/15 mg (*)] Furosemide [Lasix 20 MG (*)] 20 mg PO DAILY 12/27/15 Atorvastatin Calcium [Lipitor 20 20 mg PO DAILY 03/16/17 mg (*)] Carvedilol [Coreg (*)] 3.125 mg PO BIDMEAL 03/16/17 Herbals/Supplements -Info Only 1 each PO DAILY 03/16/17 Hydrocortisone 2.5% 1 mabel TP DAILY PRN 03/16/17 [Hydrocortisone 2.5% cream (*)] Fluocinonide 0.05% [Lidex 0.05% 1 mabel TP DAILY PRN 05/17/17 Cream] Insulin Lispro [humALOG LISPRO 100 0 - 5 unit SC TIDMEAL 05/26/17 units/ml (*)] Hydrocodone/APAP 325 [[place] 1 - 2 tab PO Q4HRS PRN #30 tab 05/27/17 5/325 (*)] Medical Decision Making - Diagnostics Imaging Results: Imaging Impressions Chest X-Ray 12/30/18 15:01 Impression: 1. Borderline CHF/fluid overload. 2. No pneumonia or effusion. - Data Points Laboratory Results: Laboratory Results 12/30/18 14:30 12/30/18 14:30 12/30/18 12/30/18 12/30/18 15:20 15:20 15:20 WBC RBC Hgb Hct MCV MCH MCHC RDW Plt Count MPV Neut % (Auto) Lymph % (Auto) Harper % (Auto) Eos % (Auto) Baso % (Auto) Nucleat RBC Rel Count Absolute Neuts (auto) Absolute Lymphs (auto) Absolute Monos (auto) Absolute Eos (auto) Absolute Basos (auto) Absolute Nucleated RBC Immature Gran % Immature Gran # D-Dimer 0.91 ug/mLFEU H ug/mLFEU (0.00-0.50) Sodium Potassium Chloride Carbon Dioxide Anion Gap BUN Creatinine Estimated GFR Glucose Calcium POC Troponin I Troponin I Pending NT-Pro-B Natriuret Pep Pending Nasal Influenza A PCR NEGATIVE FOR FLU A (NEGATIVE) Nasal Influenza B PCR NEGATIVE FOR FLU B (NEGATIVE) RSV (PCR) RSV DETECTED H (NEGATIVE) 12/30/18 12/30/18 12/30/18 15:08 14:30 14:30 WBC 7.03 10^3/uL 10^3/uL (3.80-9.50) RBC 4.82 10^6/uL 10^6/uL (4.40-6.38) Hgb 15.3 g/dL g/dL (13.7-17.5) Hct 44.8 % % (40.0-51.0) MCV 92.9 fL fL (81.5-99.8) MCH 31.7 pg pg (27.9-34.1) MCHC 34.2 g/dL g/dL (32.4-36.7) RDW 14.5 % % (11.5-15.2) Plt Count 160 10^3/uL 10^3/uL (150-400) MPV 10.1 fL fL (8.7-11.7) Neut % (Auto) 72.5 % % (39.3-74.2) Lymph % (Auto) 13.2 % L % (15.0-45.0) Harper % (Auto) 13.5 % H % (4.5-13.0) Eos % (Auto) 0.1 % L % (0.6-7.6) Baso % (Auto) 0.4 % % (0.3-1.7) Nucleat RBC Rel Count 0.0 % % (0.0-0.2) Absolute Neuts (auto) 5.09 10^3/uL 10^3/uL (1.70-6.50) Absolute Lymphs (auto) 0.93 10^3/uL L 10^3/uL (1.00-3.00) Absolute Monos (auto) 0.95 10^3/uL H 10^3/uL (0.30-0.80) Absolute Eos (auto) 0.01 10^3/uL L 10^3/uL (0.03-0.40) Absolute Basos (auto) 0.03 10^3/uL 10^3/uL (0.02-0.10) Absolute Nucleated RBC 0.00 10^3/uL 10^3/uL (0-0.01) Immature Gran % 0.3 % % (0.0-1.1) Immature Gran # 0.02 10^3/uL 10^3/uL (0.00-0.10) D-Dimer Sodium 135 mEq/L mEq/L (135-145) Potassium 5.1 mEq/L mEq/L (3.5-5.2) Chloride 103 mEq/L mEq/L (97-110) Carbon Dioxide 21 mEq/l L mEq/l (22-31) Anion Gap 11 mEq/L mEq/L (6-14) BUN 52 mg/dL H mg/dL (7-23) Creatinine 1.7 mg/dL H mg/dL (0.7-1.3) Estimated GFR 39 Glucose 172 mg/dL H mg/dL (70-100) Calcium 9.5 mg/dL mg/dL (8.5-10.4) POC Troponin I 0.04 ng/mL ng/mL (0.00-0.08) Troponin I NT-Pro-B Natriuret Pep Nasal Influenza A PCR Nasal Influenza B PCR RSV (PCR) Medications Given: Discontinued Medications Aspirin (Aspirin) 324 mg PO EDNOW ONE Stop: 12/30/18 15:22 Last Admin: 12/30/18 15:28 Dose: 324 mg Furosemide (Lasix Injection) 20 mg IVP EDNOW ONE Stop: 12/30/18 15:42 Last Admin: 12/30/18 16:14 Dose: 20 mg Point of Care Test Results: Chemistry 12/30/18 15:08 POC Troponin I 0.04 ng/mL ng/mL (0.00-0.08) Departure - Departure Condition: Fair Referrals: MARGARET HILTON [Primary Care Provider] - As per Instructions
[2018-12-30] MEDS ORDERED: ALBUTEROL 3 ML DEYVIAL IH PRN (18:33)
[2018-12-30] MEDS ORDERED: ACETAMINOPHEN 325 MG TAB PO PRN (18:33)
[2018-12-30] MEDS ORDERED: ONDANSETRON DISINTEGRATING 4 MG TAB PO PRN (18:33)
[2018-12-30] MEDS ORDERED: GUAIFENESIN/DM 10 ML UDCUP PO PRN (18:42)
[2018-12-30] MEDS ORDERED: FLUOCINONIDE 0.05% 15 GM CREAM TP PRN (18:43)
[2018-12-30] MEDS ORDERED: HYDROCORTISONE 2.5% 30 GM CRTUBE TP PRN (18:43)
[2018-12-30] MEDS ORDERED: D50W 25 GM/50 ML SYR IVP PRN (18:44)
--- NOTE | 2018-12-30 18:56 | PDGENHP ---
History and Physical - Chief Complaint cough, sob - History of Present Illness 78 yo male with h/o ischemic cardiomyopathy, A fib with bi-ventricular pacemaker on chronic anticoagulation, valvular heart disease and diabetes presents to ED with cough and SOB. He says his symptoms started yesterday with cough, productive of clearish sputum. Overnight, he became more short of breath and describes orthopnea and paroxysmal nocturnal dyspnea. No significant peripheral edema. No CP or pressure. He denies fevers, chills or rigors. Says his brother has recently had upper respiratory symptoms. In the ED, his BNP is elevated and CXR suggests increased HF. He is given 20 mg IV Lasix. RSV is positive. He is not hypoxemic. He is admitted for further management. History Information - Allergies/Home Medication List Allergies/Adverse Reactions: No Known Allergies Allergy (Verified 12/30/18 16:42) Home Medications: C/E/Zn/Cu/OM3/DHA/EPA/LUT/ZEAX [Preservision Areds 2 Softgel] 1 each PO BID [Last Taken 05/21/17] Dulaglutide [Trulicity] 1.5 mg SQ WE 12/04/15 [Last Taken 05/19/17] Isosorbide Mononitrate [Imdur 30 mg (*)] 30 mg PO DAILY 12/04/15 [Last Taken 03/06] Furosemide [Lasix 20 MG (*)] 20 mg PO DAILY 12/27/15 [Last Taken 12/29/18] Atorvastatin Calcium [Lipitor 20 mg (*)] 20 mg PO DAILY 03/16/17 [Last Taken 08/08] Carvedilol [Coreg (*)] 3.125 mg PO BIDMEAL 03/16/17 [Last Taken 12/29/18] Herbals/Supplements -Info Only 1 each PO DAILY 03/16/17 [Last Taken 05/21/17] Hydrocortisone 2.5% [Hydrocortisone 2.5% cream (*)] 1 mabel TP DAILY PRN 03/16/17 [Last Taken 05/25/17] Fluocinonide 0.05% [Lidex 0.05% Cream] 1 mabel TP DAILY PRN 05/17/17 [Last Taken 05/25/17] Insulin Lispro [humALOG LISPRO 100 units/ml (*)] 0 - 5 unit SC TIDMEAL 05/26/17 [Last Taken 12/27/18] Allopurinol [Allopurinol 100 MG (*)] 100 mg PO DAILY 12/30/18 [Last Taken Unknown] Erythromycin 0.5% [Erythromycin 0.5% (RX)] 1 mabel EACHEYE HS 12/30/18 [Last Taken Unknown] Insulin Degludec [Tresiba] 50 unit SQ DAILY 12/30/18 [Last Taken 12/29/18] Oxybutynin Chloride [Oxybutynin Chloride Er] 10 mg PO DAILY 12/30/18 [Last Taken Unknown] I have personally reviewed and updated: family history, medical history, social history, surgical history - Past Medical History atrial fibrillation, coronary artery disease, diabetes type 2 - Surgical History Additional surgical history: bi-ventricular pacemaker - Family History Positive for: non-pertinent - Social History Smoking Status: Never smoked Alcohol Use: Rarely Drug Use: None Additional social history: Lives independently Review of Systems Review of Systems: ROS: 10pt was reviewed & negative except for what was stated in HPI & below Physical Exam Physical Exam: Temp Pulse Resp BP Pulse Ox 36.7 C 70 20 118/83 H 96 12/30/18 18:34 12/30/18 18:34 12/30/18 18:34 12/30/18 18:34 12/30/18 18:34 Constitutional: no apparent distress Eyes: PERRL Ears, Nose, Mouth, Throat: moist mucous membranes Cardiovascular: regular rate and rhythym, JVD Respiratory: no respiratory distress, reduced air movement, inspiratory crackles Gastrointestinal: normoactive bowel sounds, soft, non-tender abdomen Skin: warm, other (left posterior distal calf with ~2 cm wound covered in black eschar with surrounding erythema. No purulence. No warmth) Musculoskeletal: full muscle strength Neurologic: AAOx3 Psychiatric: interacting appropriately Lab Data & Imaging Review 12/30/18 14:30 12/30/18 14:30 WBC 7.03 10^3/uL (3.80-9.50) 12/30/18 14:30 RBC 4.82 10^6/uL (4.40-6.38) 12/30/18 14:30 Hgb 15.3 g/dL (13.7-17.5) 12/30/18 14:30 Hct 44.8 % (40.0-51.0) 12/30/18 14:30 MCV 92.9 fL (81.5-99.8) 12/30/18 14:30 MCH 31.7 pg (27.9-34.1) 12/30/18 14:30 MCHC 34.2 g/dL (32.4-36.7) 12/30/18 14:30 RDW 14.5 % (11.5-15.2) 12/30/18 14:30 Plt Count 160 10^3/uL (150-400) 12/30/18 14:30 MPV 10.1 fL (8.7-11.7) 12/30/18 14:30 Neut % (Auto) 72.5 % (39.3-74.2) 12/30/18 14:30 Lymph % (Auto) 13.2 % (15.0-45.0) L 12/30/18 14:30 [place] % (Auto) 13.5 % (4.5-13.0) H 12/30/18 14:30 Eos % (Auto) 0.1 % (0.6-7.6) L 12/30/18 14:30 Baso % (Auto) 0.4 % (0.3-1.7) 12/30/18 14:30 Nucleat RBC Rel Count 0.0 % (0.0-0.2) 12/30/18 14:30 Absolute Neuts (auto) 5.09 10^3/uL (1.70-6.50) 12/30/18 14:30 Absolute Lymphs (auto) 0.93 10^3/uL (1.00-3.00) L 12/30/18 14:30 Absolute Monos (auto) 0.95 10^3/uL (0.30-0.80) H 12/30/18 14:30 Absolute Eos (auto) 0.01 10^3/uL (0.03-0.40) L 12/30/18 14:30 Absolute Basos (auto) 0.03 10^3/uL (0.02-0.10) 12/30/18 14:30 Absolute Nucleated RBC 0.00 10^3/uL (0-0.01) 12/30/18 14:30 Immature Gran % 0.3 % (0.0-1.1) 12/30/18 14:30 Immature Gran # 0.02 10^3/uL (0.00-0.10) 12/30/18 14:30 D-Dimer 0.91 ug/mLFEU (0.00-0.50) H 12/30/18 15:20 Sodium 135 mEq/L (135-145) 12/30/18 14:30 Potassium 5.1 mEq/L (3.5-5.2) 12/30/18 14:30 Chloride 103 mEq/L (97-110) 12/30/18 14:30 Carbon Dioxide 21 mEq/l (22-31) L 12/30/18 14:30 Anion Gap 11 mEq/L (6-14) 12/30/18 14:30 BUN 52 mg/dL (7-23) H 12/30/18 14:30 Creatinine 1.7 mg/dL (0.7-1.3) H 12/30/18 14:30 Estimated GFR 39 12/30/18 14:30 Glucose 172 mg/dL (70-100) H 12/30/18 14:30 Calcium 9.5 mg/dL (8.5-10.4) 12/30/18 14:30 POC Troponin I 0.04 ng/mL (0.00-0.08) 12/30/18 15:08 Troponin I 0.045 ng/mL (0.000-0.034) H 12/30/18 15:20 NT-Pro-B Natriuret Pep 88981 pg/mL (0-450) H 12/30/18 15:20 Nasal Influenza A PCR NEGATIVE FOR FLU A (NEGATIVE) 12/30/18 15:20 Nasal Influenza B PCR NEGATIVE FOR FLU B (NEGATIVE) 12/30/18 15:20 RSV (PCR) RSV DETECTED (NEGATIVE) H 12/30/18 15:20 Visualized and Interpreted Chest x-ray results: Yes Chest X-Ray results: other (mild edema) Visualized and Interpreted EKG results: Yes EKG Interpretation: Positive for: other (paced ventricular rhythm, unchanged from prior), T waves inversion Assessment & Plan Assessment: RSV - contributing to SOB and HF symptoms. No hypoxemia -supportive care with nebs, guaifenesin, anti-tussives -isolation precautions Acute combined systolic and diastolic HF - in setting of ICM, significant valve dz and RSV. Last echo 10/2018 reviewed in [facility], showed EF 20-25% from 30%, mod-severe MR. BNP 13K from baseline of 3-4K with increased HF signs on CXR and orthopnea/PND -IV Lasix given in ED -will continue daily IV Lasix -cardiology consult in am -monitor I&O's, daily weights CAD with prior SD - multiple stents and ICM, ef as above 20-25%. -cont ASA, statin, BB, nitrate Mild troponin elevation - suspect strain in setting of above. He is chest pain free. -trend trop A fib - s/p bi-V pacemaker -cont BB, xarelto DM - check a1c, give SSI CKD - baseline Cr 2.3, currently Cr 1.7 though increased HF symptoms as above -follow LLE wound - wound consult, monitor closely for increased erythema or signs of infection Full code DVT PPLX - Xarelto Dispo - admit to inpt, anticipate >48 hrs hospitalization for ongoing management of acute HF, RSV
[2018-12-30] MEDS: guaiFENesin 600 MG TAB.ER PO SCH (20:39)
[2018-12-30] MEDS: ERYTHROMYCIN 0.5% 1 GM OPHT.OINT EACHEYE SCH (20:39)
[2018-12-30] MEDS: IPRATROPIUM/ALBUTEROL 3 ML DEYVIAL IH SCH (21:48)
--- NOTE | 2018-12-30 22:15 | CPEKG ---
Test Reason : OPEN Blood Pressure : / mmHG Vent. Rate : 070 BPM Atrial Rate : 000 BPM P-R Int : 035 ms QRS Dur : 160 ms QT Int : 468 ms P-R-T Axes : 000 167 126 degrees QTc Int : 506 ms Ventricular-paced rhythm slight st elevation V2 Confirmed by Maryjane Suazo ([id number]) on 12/30/2018 10:15:19 PM Referred By: Maryjane Suazo Confirmed By:Maryjane Suazo
[2018-12-30] MEDS: CARVEDILOL 3.125 MG TAB PO SCH (23:51)
[2018-12-31] MEDS: IPRATROPIUM/ALBUTEROL 3 ML DEYVIAL IH SCH ×4 (05:34→20:27)
[2018-12-31] MEDS ORDERED: FUROSEMIDE 20 MG/2 ML VIAL IVP SCH (09:00)
[2018-12-31] MEDS: FUROSEMIDE 20 MG/2 ML VIAL IVP SCH ×2 (10:14→14:14)
[2018-12-31] MEDS: guaiFENesin 600 MG TAB.ER PO SCH ×2 (10:14→21:24)
[2018-12-31] MEDS: ISOSORBIDE MONONITRATE 30 MG TAB.SR PO SCH (10:14)
[2018-12-31] MEDS: RIVAROXABAN 15 MG TAB PO SCH (10:15)
[2018-12-31] MEDS: CARVEDILOL 3.125 MG TAB PO SCH ×2 (10:15→18:21)
[2018-12-31] MEDS: ATORVASTATIN CALCIUM 20 MG TAB PO SCH (10:15)
[2018-12-31] MEDS: ALLOPURINOL 100 MG TAB PO SCH (10:15)
[2018-12-31] MEDS: INSULIN DEGLUDEC 50 UNIT SQ SCH ×2 (10:16→14:09)
--- NOTE | 2018-12-31 10:46 | ASMTCMCOM ---
CM Note CM Note Notes: Patient admitted with cough and SOB - dx with RSV. Also has hx significant for systolic and diastolic HF. Cardiology consult requested. Patient is normally independent, lives w Vanna. PT/OT evals ordered and pending. Case Management will follow. Date Signed: 12/31/2018 10:46 AM Electronically Signed By:Damari Gonzales RN
[2018-12-31] MEDS: INSULIN LISPRO 100 UNIT/ML SC SCH ×3 (10:52→18:22)
--- NOTE | 2018-12-31 13:13 | PDMN ---
Medical Necessity Medical necessity: Pt meets IP criteria per & MCG M-190; est los >2 mn for eval/tx of acute heart failure w/RSV & LLE wound; admit for further monitoring, Cardiology/Wound Care consults, IV diuresis & respiratory supportive care; comorbid advanced age, AFIB on AC, CKD, ischemic cardiomyopathy, valvular heart disease; per H&P & order 12/30/18
--- NOTE | 2018-12-31 14:13 | GHP ---
[f rep st] HISTORY AND PHYSICAL DATE OF ADMISSION: 12/30/2018 We were asked by hospitalist to evaluate and treat the patient due to his congestive heart failure. HISTORY OF PRESENT ILLNESS: The patient is an 78-year-old male who is followed by [facility] as an out-patient. He had developed a cough and shortness of breath with history of ischemic cardiomyopathy, AFib with [employer] ICD- pacemaker , currently on Xarelto for anticoagulation. Additionally, he has valvular heart disease and diabetes mellitus. He developed symptoms of a cough on 2018. He does not have any lower extremity edema. He did develop yesterday increasing shortness of breath and paroxysmal nocturnal dyspnea. He has not had any chills or fever. He has been in contact with his brother who recently had an upper respiratory infection. While in the emergency room, he had a chest x-ray that suggested an increase in CHF. He was given 20 mg IV Lasix. He was tested for RSV, which came back positive. He was also checked for influenza A and B, which both came back negative. His BNP was elevated in the emergency room. He was admitted for further CHF management. ALLERGIES: He has no known allergies. HOME MEDICATIONS: He currently is on PreserVision AREDS 2 soft gel twice daily , Trulicity 1.5 mg subcu on Wednesdays, Imdur 30 mg daily, Lasix 20 mg daily, Lipitor 20 mg daily, Coreg 3.125 mg twice daily, lispro insulin 100 units/mL 0 to 5 units 3 times a day with meals, herbs and supplements daily, allopurinol 100 mg daily, erythromycin 0.5% 1 application each eye daily, Tresiba 50 units subcu daily, oxybutynin chloride extended release 10 mg daily. PAST MEDICAL HISTORY: 1. Atrial fibrillation. 2. Coronary artery disease. 3. Diabetes mellitus. SURGICAL HISTORY: Biventricular pacemaker placement. FAMILY HISTORY: No pertinent family history provided. SOCIAL HISTORY: Smoking: Never. Alcohol use: Rarely. He does live independently. REVIEW OF SYSTEMS: A 10-point review of system was reviewed and negative with exception of that in the HPI. PHYSICAL EXAM: VITAL SIGNS: Blood pressure 110/63, heart rate 70 V-paced, temperature 36.9. CONSTITUTIONAL: He is in no apparent distress. EYES: PERRL. EARS, NOSE, THROAT: Membranes moist. CARDIOVASCULAR: Heart rate and rhythm are regular. No JVD. RESPIRATORY: Mildly reduced air movement. No crackles or rubs. GASTROINTESTINAL: Normal bowel sounds. Soft, nontender abdomen. SKIN: Warm and dry. No lesions. No rash. MUSCULOSKELETAL: Good muscle strength. NEUROLOGIC: He is alert and oriented x3. INVESTIGATION: Lab on 12/30/2018: D-dimer 0.91. Troponin 0.045, 0.047, 0.044. BNP 13,200. RSV positive. Influenza A negative. Influenza B negative. Chest x-ray on 12/30/2018 showed borderline CHF with mild fluid overload. No pneumonia or effusions. IMPRESSION AND PLAN: 1. Congestive heart failure, combined systolic and diastolic. Last ejection fraction noted was 20% to 25% with [id number] mitral regurgitation. BNP 13,200. Plan to treat with intravenous Lasix 20 mg daily. 2. Continue to monitor I and O's and daily weights. 3. Respiratory syncytial virus. This is likely the source of his heart failure symptoms. He is not short of breath at time of visit. He is getting nebulizer care and antitussives. He is on isolation precautions. 4. Mild troponin elevation, likely due to strain. He has no chest pain. 5. Atrial fibrillation, status post Bi-V pacemaker. He is on Xarelto for anticoagulation and beta blockers, which will be continued. 6. Diabetes mellitus. He is managed on antidiabetic medications. Blood sugars will be monitored during hospitalization. 7. Chronic kidney disease. Baseline creatinine 2.3. Creatinine on admission 1.7. 8. We will continue to follow along, monitoring closely his BNP along with his I and O and weight loss. He will have an echocardiogram to further evaluate his cardiac status. 9. We will continue intravenous Lasix and get a BMP in the morning. 10. We will continue to follow along closely. 11. Thank you for asking us to be part of this patient's care. Supervising Physician: Joby Wahl MD /[id number]/MODL MTDD
--- NOTE | 2018-12-31 14:36 | HOSPPROG ---
Hospitalist Progress Note Assessment/Plan: RSV - contributing to SOB and HF symptoms. No hypoxemia -supportive care with nebs, guaifenesin, anti-tussives -isolation precautions Acute combined systolic and diastolic HF - in setting of ICM, significant valve dz and RSV. Last echo 10/2018 reviewed in [place], showed EF 20-25% from 30%, mod-severe MR. BNP 13K from baseline of 3-4K with increased HF signs on CXR and orthopnea/PND -IV Lasix daily -cardiology following -monitor I&O's, daily weights CAD with prior AR - multiple stents and ICM, ef as above 20-25%. -cont ASA, statin, BB, nitrate Mild troponin elevation - suspect strain in setting of above. He is chest pain free. -trend trop A fib - s/p bi-V pacemaker -cont BB, xarelto DM - a1c: 9.8, con SSI CKD - baseline Cr 2.3 LLE wound - wound consult, monitor closely for increased erythema or signs of infection Full code DVT PPLX - Xarelto Dispo - change to inpatient Subjective: still somewhat sob. no n/v Objective: Vital Signs Temp Pulse Resp BP Pulse Ox 36.9 C 70 16 110/63 95 12/31/18 12:00 12/31/18 12:00 12/31/18 12:00 12/31/18 12:00 12/31/18 12:00 Laboratory Results 12/31/18 02:50 12/30/18 12/31/18 01/01/19 05:59 05:59 05:59 Intake Total 450 Output Total 400 350 Balance 50 -350 - Physical Exam Constitutional: no apparent distress Eyes: PERRL, EOMI Ears, Nose, Mouth, Throat: moist mucous membranes Cardiovascular: regular rate and rhythym, No edema Respiratory: reduced air movement Gastrointestinal: normoactive bowel sounds, soft, non-tender abdomen Skin: warm Neurologic: AAOx3 Psychiatric: interacting appropriately, not anxious, not encephalopathic Lymph, Heme, Immunologic: No petechiae ICD10 Worksheet Patient Problems: Problems Problem Status Onset Chronic Disease Management/Transitional Care Program Active Acute exacerbation of congestive heart failure Acute Acute kidney injury superimposed on CKD Acute Coagulopathy Acute Congestive heart failure Acute Elevated d-dimer Acute Elevated troponin Acute Fluid retention in legs Acute Hyponatremia Acute Inguinal hernia Acute Renal insufficiency Acute
[2018-12-31] MEDS: ERYTHROMYCIN 0.5% 1 GM OPHT.OINT EACHEYE SCH (21:24)
[2019-01-01 04:01] LABS: PLATELET COUNT 127 10^3/uL (150-400)
[2019-01-01] MEDS: IPRATROPIUM/ALBUTEROL 3 ML DEYVIAL IH SCH ×2 (05:45→10:45)
[2019-01-01] MEDS ORDERED: FUROSEMIDE 20 MG/2 ML VIAL IVP SCH (09:00)
[2019-01-01] MEDS: CARVEDILOL 3.125 MG TAB PO SCH (09:07)
[2019-01-01] MEDS: INSULIN LISPRO 100 UNIT/ML SC SCH ×2 (09:07→12:08)
--- NOTE | 2019-01-01 09:31 | ECHO ---
[email or web address] [address] [address] Main: [phone] Echocardiography Examination Transthoracic Name: YAO ADHIKARI MR#: Study Date: 01/01/2019 Study Time: 07:45 AM Date of : 1940 Age: 78 year(s) Height: 180.3 cm (71 in.) Weight: 107.96 kg (238 lb.) BSA: 2.27 m2 Gender: Male Examination: Echo Contrast: Image Quality: Fair Rhythm: Heart Rate: BP: / Indication: CHF/SOB Procedure Staff Referring Physician: Biomed Tech: Melania Hutchison RDCS Reading Physician: Antonio Wahl MD Requesting Provider: Indication: CHF/SOB Measurements Chambers AV/MV Label Value Normal Value Label Value Normal Value LVOTd 2.2 cm (1.9cm - 2.1cm) AV PGmean 3 mmHg LVOT VTI 14.7 cm (18cm - 22cm) AV Vmax 1.2 m/s LVDd, 2D 6.2 cm (4.2cm - 5.9cm) DINAH (VTI) 2.4 cm2 LVDs, 2D 5.1 cm (2.1cm - 4cm) MV E Vmax 1.07 m/s IVSd, 2D 1.3 cm (0.6cm - 1.1cm) MV A Vmax 0.38 m/s LVPWd, 2D 0.8 cm (0.6cm - 1cm) MV E/A 2.82 LVEF, 2D 38 % (54% - 74%) MV E/E' lateral 15.7 LVOT PGmean 1 mmHg MV E/E' septal 18.3 (0.45 - 1.25) LVOT Vmean 0.43 m/s MV E' septal 0.06 m/s LA Volume, BP 160 ml (18ml - 58ml) MV VTI 33.9 cm LADs, 2D 5.5 cm (3cm - 4cm) MVA D (continuity eq.) 1.6 cm2 LAESV index, BP 70.5 ml/m2 MV PGmax 6 mmHg MV PGmean 2 mmHg MV Geeta 3.8 cm MR Vena Contracta 0.5 cm MR Reg. Volume 71 ml MR Reg. Fraction 19 % MR Vmax 4.99 m/s MR VTI 161 cm MR (ERO) 0.44 cm2 Patient: YAO ADHIKARI MRN: Study Date: 01/01/2019 Page 1 of 3 07:45 AM MV E' lateral 0.07 m/s MR PISA Radius 1.1 cm MV E/E' mean 16.46 MR PISA Alias V. 28.8 cm/s MV E' mean 0.06 m/s TV/PV Label Value Normal Value RA Pressure 10 mmHg RVSP 58 mmHg TR Pmax 48 mmHg TR Vmax 3.46 m/s Conclusions The rhythm appears to be atrial fibrillation with 100% ventricular pacing. Moderately dilated left ventricle with severely reduced LV systolic function. Ejection fraction is estimated at 20-25%. 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 Paradoxic septal motion is noted. Normal RV size and function. Severe left atrial enlargement with moderate to severe right atrial enlargement. Trileaflet aortic valve with mild sclerosis. No significant stenosis or regurgitation. Mild mitral annular calcification and mitral leaflet calcification. Apically displaced mitral leaflet coaptation point likely due to tethering of the posterior leaflet. Severe mitral regurgitation with an eccentric and posteriorly directed jet. Normal appearing tricuspid valve. Moderate to severe tricuspid regurgitation. Moderately elevated estimated RVSP of 58 mmHg. The patient had a previous study 11/01/2018. The present study demonstrates similar findings. Findings Left Ventricle: The mid anteroseptal, mid septal, apical anerior, apical lateral, apical inferior and apical septal pleitez segments are akinetic. . Left ventricle is mildly dilated. Severely reduced systolic left ventricular function. EF range is estimated at 20 % - 25 %. Left ventricle wall thickness is normal. The basal inferoseptal left ventricular segment is hypokinetic (2). The mid inferoseptal, mid inferior, mid inferolateral, apical anterior, apical septal, apical inferior, apical lateral and apex left ventricular wall segments are akinetic (3). All remaining scored left ventricular wall segments are with no wall motion abnormalities (1). Grade III Diastolic Dysfunction. IVS: The septum is intact. Right Ventricle: There is a ICD/Pacer wire noted in the right ventricle.. Normal size right ventricle. Right ventricular wall thickness is normal. Right ventricular systolic function is normal. Left Atrium: The left atrium is severely dilated. IAS: Normal appearing atrial septum. Right Atrium: The right atrium is moderately to severely dilated. Mitral Valve: Moderate to severe mitral regurgitation. No mitral valve stenosis. There is mild mitral thickening. Mitral Valve Measurements MR Reg. Volume is 71 ml. MR (ERO) is 0.440 cm2. Aortic Valve: Aortic leaflets exhibit normal cuspal separation. No aortic valve regurgitation. There is no aortic stenosis. Aortic leaflets exhibit mild calcification. The aortic valve is trileaflet. Tricuspid Valve: Tricuspid valve leaflets are normal in appearance and function. Moderate to severe tricuspid regurgitation. No tricuspid Patient: YAO ADHIKARI MRN: Study Date: 01/01/2019 Page 2 of 3 07:45 AM valve stenosis. Right Ventricular systolic pressure is measured at 58 mmHg. Pulmonary artery pressure is mildly to moderately increased. Pulmonic Valve: Pulmonic leaflets exhibit normal cuspal separation. Mild pulmonic valve regurgitation is present. There is no pulmonic valve stenosis. Aorta: The aorta is normal. Pericardium: No pericardial effusion. No pleural effusion present. Exam Details Procedure Ordered: Echo Image Quality: Fair (No Signature Object) Wall Motion Scores Patient: YAO ADHIKARI MRN: Study Date: 01/01/2019 Page 3 of 3 07:45 AM [id number]
--- NOTE | 2019-01-01 09:40 | PDCARPN ---
Cardiology Progress Note Chief Complaint: SOB Assessment/Plan: Assessment: Dyspnea RSV positive with URI symptoms today of productive cough with yellow sputum, mild SOB. Lung crackles on exam likely related to congestion. He is complaining of sore throat today. CKI-- today BUN 66 / Cr 2.0. BNP 85005 today (down from 04776). On Lasix 20 mg IVP for diuresis. OK to switch to oral Lasix. No LE edema. Known cardiomyopathy with EF 25%. Stable by Echo. ECHO today unchanged from October 2018. Plan: Symptoms today of sore throat. Possible progressing to URI. OK for discharge today if no significant cardiac changes. 01/01/19 09:29 01/01/19 12:34 Subjective: My throat is sore today. Reviewed/Discussed With: hospitalist (Luis Estes MD), multidisciplinary team Time Spent with Patient: greater than 25 minutes Time Spent with Patient: Greater than 25 minutes spent on this patients care, greater than 50% of time spent counseling, educating, and coordinating care regarding the above mentioned plan. Objective: Vital Signs (8 Hrs) Temp Pulse Resp BP Pulse Ox 01/01/19 08:00 36.8 C 72 18 103/62 93 01/01/19 05:47 80 20 96 01/01/19 03:16 36.6 C 70 18 124/76 H 94 01/01/19 01:46 37.0 C 89 20 108/57 L 95 Intake/Output (24 Hrs) 12/31/18 01/01/19 01/02/19 05:59 05:59 05:59 Intake Total 450 1000 Output Total 400 2000 Balance 50 -1000 Intake: Oral (ml) 450 1000 Output: Urine (ml) 400 2000 Urinal 400 2000 Other: Weight 108.272 kg 107.955 kg Number of Voids Urinal 1 2 Result Diagrams: 01/01/19 03:15 01/01/19 03:15 Cardiac Labs: Cardiac Lab Results (72 Hrs) 12/31/18 12/30/18 02:50 20:40 Troponin I 0.044 H 0.047 H - Physical Exam Constitutional: no apparent distress Cardiovascular: regular rate and rhythm, no murmurs, no rubs Peripheral Pulses: 1+: dorsalis-pedis (R), dorsalis-pedis (L) Respiratory: no wheezes, inspiratory crackles Skin: warm, no edema Neurologic: AAOx3 Psychiatric: cooperative, interactive ICD10 Worksheet Patient Problems: Problems Problem Status Onset Chronic Disease Management/Transitional Care Program Active Congestive heart failure Acute Elevated troponin Acute Renal insufficiency Acute Elevated d-dimer Acute Acute kidney injury superimposed on CKD Acute Acute exacerbation of congestive heart failure Acute Coagulopathy Acute Hyponatremia Acute Inguinal hernia Acute Fluid retention in legs Acute
[2019-01-01] MEDS ORDERED: FUROSEMIDE 20 MG TAB PO SCH (09:45)
[2019-01-01] MEDS: ATORVASTATIN CALCIUM 20 MG TAB PO SCH (09:52)
[2019-01-01] MEDS: RIVAROXABAN 15 MG TAB PO SCH (09:52)
[2019-01-01] MEDS: ALLOPURINOL 100 MG TAB PO SCH (09:52)
[2019-01-01] MEDS: guaiFENesin 600 MG TAB.ER PO SCH (09:52)
[2019-01-01] MEDS: ISOSORBIDE MONONITRATE 30 MG TAB.SR PO SCH (09:52)
[2019-01-01] MEDS: INSULIN DEGLUDEC 50 UNIT SQ SCH (09:53)
[2019-01-01 11:40] VITALS: BP 104/65
--- NOTE | 2019-01-01 12:35 | PDIAF ---
- Diagnosis Diagnosis: RSV Code Status: Full Code - Medication Management Discharge Medications: electronically signed and located in the Home Medication List. - Orders Services needed: Home Care, Registered Nurse, Physical Therapy, Occupational Therapy Home Care Face to Face: I certify that this patient was under my care and that I had the required [id number] encounter meeting the encounter requirements on the discharge day. My findings support the fact that the patient is homebound as defined in Home Care Face to Face Continued: CMS Chapter 7 Medicare Benefits Manual 30.1.1 , The condition of the patient is such that there exists a normal inability to leave home and consequently, leaving home would require a considerable and taxing effort. Isolation Type: Contact Isolation, Droplet Isolation Diet Recommendation: no restrictions on diet Diet Texture: Regular Texture Diet Additional Instructions: activity: as tolerated Please f/u: 1) with PCP next week 2) with Cardiology in 2-4 weeks - Follow Up Care Current Providers and Referrals: MARGARET HILTON [Primary Care Provider] - As per Instructions
--- NOTE | 2019-01-01 12:39 | PDDCSUM ---
Discharge Summary Discharge Summary: 78 yo male with hx of Systolic CHF admitted with SOB and found to have RSV and slight volume overload. He was admitted and given Lasix. He is now back to baseline. He will cont with supportive care. He is on RA. He is back to baseline. DDX RSV - contributing to SOB and HF symptoms. No hypoxemia -supportive care with nebs, guaifenesin, anti-tussives Acute combined systolic and diastolic HF - in setting of ICM, significant valve dz and RSV. Last echo 10/2018 reviewed in [place], showed EF 20-25% from 30%, mod-severe MR. BNP 13K from baseline of 3-4K with increased HF signs on CXR and orthopnea/PND -IV Lasix while hospitalized, now back to Lasix 20mg daily -cardiology following -monitor I&O's, daily weights CAD with prior IA - multiple stents and ICM, ef as above 20-25%. -cont ASA, statin, BB, nitrate Mild troponin elevation - suspect strain in setting of above. He is chest pain free. A fib - s/p bi-V pacemaker -cont BB, xarelto DM - a1c: 9.8, Hyperglycemia while hospitalized. Tresiba increased to 52 units daily. Cont Trulicity and short acting insulin. Will f/u with PCP CKD - baseline Cr 2.3 Exam: NAD AAOX3 RRR CTA B MILD RALES, NORMAL WORK OF BREATHING S/NT/ND MEDS: SEE MED REC TOTAL TIME SPENT ON D/C IS 35 MINS
--- NOTE | 2019-01-01 12:46 | ASMTLACE ---
LACE Length of stay for Answers: 2 days current admission Acuity / Level of Answers: Yes Care: Did the patient have an inpatient admission? Comorbidities - select Answers: Coronary Artery Disease all that apply Diabetes (uncontrolled or controlled) # of Emergency department Answers: 1-2 visits in the last 6 months Score: 9 Date Signed: 01/01/2019 12:45 PM Electronically Signed By:Damari Gonzales RN
--- NOTE | 2019-01-01 12:50 | ASMTDCNOTE ---
Case Management Discharge Discharge Order Complete? Answers: Yes Patient to Obtain Answers: Independently Medications Transportation Arranged Answers: Family/Friends Faxed Final Orders Answers: Yes Family Notified Answers: Yes Discharge Comments Notes: Patient discharged home with and home health services (PT/OT/RN) from [facility]. Orders sent Date Signed: 01/01/2019 12:50 PM Electronically Signed By:Damari Gonzales RN
== END 2019-01-01 15:09 | disposition home health service (06) | DRG 293 ==
LOC: F2W 18:15 → OBSVTOIN 18:46
PROVIDERS: ADMIT Hospitalist; ATTEND Hospitalist
DX: I50.42 Chronic combined systolic (congestive) and diastolic (congestive) heart failure (principal); B97.4 Respiratory syncytial virus as the cause of diseases classified elsewhere; I25.5 Ischemic cardiomyopathy; I34.0 Nonrheumatic mitral (valve) insufficiency; I25.10 Atherosclerotic heart disease of native coronary artery without angina pectoris; I25.2 Old myocardial infarction; I48.91 Unspecified atrial fibrillation; E11.65 Type 2 diabetes mellitus with hyperglycemia; N18.9 Chronic kidney disease, unspecified; Z79.01 Long term (current) use of anticoagulants; Z95.0 Presence of cardiac pacemaker
CPT/HCPCS: 84484-ER; 96374; 97116-GP; 97161-GP; 97165-GO; J1815; J1940